=== PATIENT | female | born 1975 | race African-American/Black ===

== ENCOUNTER 2017-10-22 14:31 | Emergency (ER) | payer MEDICAID ==
[~2017-10-22] VITALS: Ht 165.1 cm; Wt 85.0 kg
[2017-10-22] MEDS ORDERED: VISCOUS LIDOCAINE 2% 15 ML UDC MM ONE (17:00)
[2017-10-22 17:35] VITALS: BP 159/95
== END 2017-10-22 17:38 | disposition home or self-care (01) ==
LOC: ER 14:31
DX: J02.9 Acute pharyngitis, unspecified (principal); I10 Essential (primary) hypertension; Z98.890 Other specified postprocedural states
CPT/HCPCS: 99283

== ENCOUNTER 2018-09-15 09:36 | Emergency (ER) | payer MEDICAID ==
[~2018-09-15] VITALS: Ht 154.9 cm; Wt 82.0 kg
[2018-09-15] MEDS ORDERED: KETOROLAC 30MG/ML VIAL IV STA (10:05)
[2018-09-15] MEDS ORDERED: SODIUM CHLORIDE 0.9% 1,000 ML IV ONE (10:05)
[2018-09-15 10:33] LABS: CLARITY URINE CLEAR (CLEAR); COLOR URINE YELLOW (YELLOW); KETONES URINE NEGATIVE (NEGATIVE); LEUKOCYTE ESTERASE URINE NEGATIVE (NEGATIVE); NITRITE URINE NEGATIVE (NEGATIVE); OCCULT BLOOD URINE NEGATIVE (NEGATIVE); PROTEIN URINE NEGATIVE (NEGATIVE); SPECIFIC GRAVITY URINE 1.002 (1.005-1.030); UROBILINOGEN URINE 0.2 E.U./dL (0.2-1.0)
[2018-09-15 10:46] LABS: *BARBITURATES SCREEN URINE NEGATIVE (NEGATIVE); *BENZODIAZEPINES SCREEN URINE NEGATIVE (NEGATIVE); CANNABINOID URINE SCREEN NEGATIVE (NEGATIVE); OPIATES URINE SCREEN NEGATIVE (NEGATIVE); PHENCYCLIDINE URINE SCREEN NEGATIVE (NEGATIVE)
[2018-09-15 10:49] LABS: *AMPHETAMINES SCREEN URINE NEGATIVE (NEGATIVE)
[2018-09-15 10:50] LABS: *COCAINE SCREEN URINE NEGATIVE (NEGATIVE); METHADONE URINE SCREEN NEGATIVE (NEGATIVE)
[2018-09-15 10:55] LABS: BASOPHILS % 0.6 % (0.0-2.0); EOSINOPHILS % 2.7 % (0.0-5.0); HEMATOCRIT. 38.9 % (36.0-48.0); HEMOGLOBIN. 13.3 g/dL (12.0-16.0); LYMPHOCYTES % 43.1 % (20.0-50.0); MEAN CORPUSCULAR HEMOGLOBIN 31.3 pg (28.0-32.0); MEAN CORPUSCULAR VOLUME 91.5 fL (81.0-99.0); MEAN PLATELET VOLUME 7.8 fl (7.4-10.4); MONOCYTES % 5.8 % (2.0-8.0); NEUTROPHILS % 47.8 % (40.0-76.0); PLATELET 224 x1000/uL (130-400); RED BLOOD CELL COUNT 4.25 mill/uL (4.2-5.4); RED CELL DISTRIBUTION WIDTH 13.1 % (11.6-14.6)
[2018-09-15 11:00] LABS: CHLORIDE 102 mEq/L (98-107)
[2018-09-15 11:03] LABS: PARTIAL THROMBOPLASTIN TIME 26.1 sec (23.4-31.0); PROTHROMBIN TIME 10.4 sec (9.6-11.0)
[2018-09-15 11:15] LABS: HCG SCREEN NEGATIVE
[2018-09-15 12:14] VITALS: BP 178/92
[2018-09-15] MEDS ORDERED: IOHEXOL-350 100 ML BOTTLE ONE (12:30)
[2018-09-15] MEDS ORDERED: DIAZEPAM 5 MG TABLET PO ONE (12:30)
== END 2018-09-15 12:55 | disposition home or self-care (01) ==
LOC: ER 09:36
DX: M54.89 Other dorsalgia (principal); I10 Essential (primary) hypertension
CPT/HCPCS: 36415; 71045; 71275; 80053; 80305; 81003; 81025; 83690; 83880; 84484; 84703; 85025; 85610; 85730; 93005; 96372; 99284; J1885; J7030; Q9967

== ENCOUNTER 2019-02-18 09:12 | Emergency (ER) | payer MEDICAID ==
[~2019-02-18] VITALS: Ht 165.1 cm; Wt 82.0 kg
[2019-02-18] MEDS ORDERED: ASPIRIN 81MG TABLET PO ONE (09:45)
[2019-02-18 10:48] LABS: BASOPHILS % 0.8 % (0.0-2.0); EOSINOPHILS % 3.1 % (0.0-5.0); HEMATOCRIT. 36.5 % (36.0-48.0); HEMOGLOBIN. 12.3 g/dL (12.0-16.0); LYMPHOCYTES % 42.7 % (20.0-50.0); MEAN CORPUSCULAR HEMOGLOBIN 30.1 pg (28.0-32.0); MEAN CORPUSCULAR VOLUME 89.6 fL (81.0-99.0); MEAN PLATELET VOLUME 8.3 fl (7.4-10.4); MONOCYTES % 6.1 % (2.0-8.0); NEUTROPHILS % 47.3 % (40.0-76.0); PLATELET 241 x1000/uL (130-400); RED BLOOD CELL COUNT 4.08 mill/uL (4.2-5.4); RED CELL DISTRIBUTION WIDTH 13.2 % (11.6-14.6)
[2019-02-18 10:50] LABS: CLARITY URINE CLEAR (CLEAR); COLOR URINE YELLOW (YELLOW); KETONES URINE NEGATIVE (NEGATIVE); LEUKOCYTE ESTERASE URINE NEGATIVE (NEGATIVE); NITRITE URINE NEGATIVE (NEGATIVE); OCCULT BLOOD URINE NEGATIVE (NEGATIVE); PH URINE 7.5 (4.5-8.0); PROTEIN URINE NEGATIVE (NEGATIVE); SPECIFIC GRAVITY URINE 1.005 (1.005-1.030); UROBILINOGEN URINE 0.2 E.U./dL (0.2-1.0)
[2019-02-18 10:55] LABS: CHLORIDE 105 mEq/L (98-107)
[2019-02-18] MEDS ORDERED: IOHEXOL-300 100 ML BOTTLE ONE (13:42)
[2019-02-18 15:10] VITALS: BP 147/86
== END 2019-02-18 15:37 | disposition home or self-care (01) ==
LOC: ER 09:12
DX: R07.89 Other chest pain (principal); I10 Essential (primary) hypertension; Z90.49 Acquired absence of other specified parts of digestive tract; Z98.890 Other specified postprocedural states
CPT/HCPCS: 36415; 71045; 71275; 80053; 81003; 83690; 83880; 84484; 85025; 85379; 93005; 99284; Q9967; Z7610

== ENCOUNTER 2021-02-19 14:29 | Emergency (ER) | payer MEDICAID ==
[~2021-02-19] VITALS: Ht 165.1 cm; Wt 84.0 kg
[2021-02-19] MEDS ORDERED: ACETAMINOPHEN WITH CODEINE 300/30MG TABLET PO STA (16:02)
[2021-02-19] MEDS ORDERED: KETOROLAC 60MG/2ML VIAL IM STA (16:02)
[2021-02-19 16:59] LABS: CLARITY URINE CLEAR (CLEAR); COLOR URINE YELLOW (YELLOW); KETONES URINE NEGATIVE (NEGATIVE); LEUKOCYTE ESTERASE URINE NEGATIVE (NEGATIVE); NITRITE URINE NEGATIVE (NEGATIVE); OCCULT BLOOD URINE NEGATIVE (NEGATIVE); PH URINE 7.5 (4.5-8.0); PROTEIN URINE NEGATIVE (NEGATIVE); SPECIFIC GRAVITY URINE 1.009 (1.005-1.030); UROBILINOGEN URINE 0.2 E.U./dL (0.2-1.0)
[2021-02-19 17:54] VITALS: BP 178/94
[2021-02-19] MEDS ORDERED: NAPR-681 PO (17:58)
[2021-02-19] MEDS ORDERED: TRAM50TA3 PO (17:58)
== END 2021-02-19 18:30 | disposition home or self-care (01) ==
LOC: ER 14:29
DX: M54.6 Pain in thoracic spine (principal); I10 Essential (primary) hypertension; Z98.890 Other specified postprocedural states
CPT/HCPCS: 71045; 72070; 81003; 81025; 96372; 99284; J1885

== ENCOUNTER 2021-08-13 00:14 | Emergency (ER) | payer MEDICAID ==
[~2021-08-13] VITALS: Ht 165.1 cm; Wt 80.0 kg
[~2021-08-13 00:14] MED LIST: NAPR-681 PO; TRAM50TA3 PO
[2021-08-13] MEDS ORDERED: KETOROLAC 30MG/ML VIAL IM ONE (01:30)
[2021-08-13 02:14] VITALS: BP 176/140
[2021-08-13 02:39] LABS: BASOPHILS % 0.6 % (0.0-2.0); EOSINOPHILS % 4.7 % (0.0-5.0); HEMATOCRIT. 36.8 % (36.0-48.0); LYMPHOCYTES % 39.6 % (20.0-50.0); MEAN CORPUSCULAR HEMOGLOBIN 27.5 pg (28.0-32.0); MEAN CORPUSCULAR VOLUME 84.4 fL (81.0-99.0); MEAN PLATELET VOLUME 7.9 fl (7.4-10.4); MONOCYTES % 7.1 % (2.0-8.0); PLATELET 247 x1000/uL (130-400); RED BLOOD CELL COUNT 4.36 mill/uL (4.2-5.4); RED CELL DISTRIBUTION WIDTH 16.5 % (11.6-14.6)
[2021-08-13 02:55] LABS: CHLORIDE 109 mEq/L (98-107)
[2021-08-13 03:21] LABS: CLARITY URINE CLEAR (CLEAR); COLOR URINE YELLOW (YELLOW); KETONES URINE NEGATIVE (NEGATIVE); LEUKOCYTE ESTERASE URINE NEGATIVE (NEGATIVE); NITRITE URINE NEGATIVE (NEGATIVE); OCCULT BLOOD URINE NEGATIVE (NEGATIVE); PH URINE 7.5 (4.5-8.0); PROTEIN URINE NEGATIVE (NEGATIVE); SPECIFIC GRAVITY URINE 1.003 (1.005-1.030); UROBILINOGEN URINE 0.2 E.U./dL (0.2-1.0)
[2021-08-13 03:31] LABS: HCG SCREEN NEGATIVE
[2021-08-13] MEDS ORDERED: IBUP-2029 MT (03:32)
== END 2021-08-13 03:42 | disposition home or self-care (01) ==
LOC: ER 00:14
DX: R10.9 Unspecified abdominal pain (principal); I10 Essential (primary) hypertension; Z90.49 Acquired absence of other specified parts of digestive tract; Z98.890 Other specified postprocedural states
CPT/HCPCS: 36415; 74176; 80053; 81003; 83690; 84703; 85025; 96372; 99284; J1885

== ENCOUNTER 2022-05-12 13:27 | Emergency (ER) | payer MEDICAID ==
[~2022-05-12] VITALS: Ht 165.1 cm; Wt 74.0 kg
[~2022-05-12 13:27] MED LIST changes: +IBUP-2029 MT
[2022-05-12 13:31] VITALS: BP 119/78
[2022-05-12] MEDS ORDERED: KETOROLAC 30MG/ML VIAL IM ONE (14:45)
[2022-05-12] MEDS ORDERED: CYCLOBENZAPRINE 10MG TABLET PO ONE (14:45)
[2022-05-12] MEDS ORDERED: LIDOCAINE 5% PATCH TOP SCH (14:45)
[2022-05-12] MEDS ORDERED: LIDO700A15 TP (15:46)
== END 2022-05-12 18:46 | disposition home or self-care (01) ==
LOC: ER 13:27
DX: M54.50 Low back pain, unspecified (principal); I10 Essential (primary) hypertension; Z98.890 Other specified postprocedural states; Z90.49 Acquired absence of other specified parts of digestive tract
CPT/HCPCS: 99281